=== PATIENT | female | born 1950 | race Caucasian/White ===

== ENCOUNTER 2024-03-14 13:27 | Emergency (ER) | payer MEDICARE, SELFPAY ==
[2024-03-14 13:36] VITALS: BP 128/56; PULSE 66; RESP 18; TEMP 37.2; O2SAT 99
--- NOTE | 2024-03-14 13:44 | ED.URI ---
HPI - URI/Sore Throat General Chief Complaint: Upper Respiratory Infection Stated Complaint: Fever/Body Ache/Headache/Cough Source: patient and RN notes reviewed Mode of arrival: ambulatory Limitations: no limitations History of Present Illness HPI Narrative: 73-year-old female history of hypertension presented for complaint of headache, body aches, sinus pressure/congestion, cough, fever/chills. onset 4 days. Endorses the cough has caused vomiting. Denies sob, wheezing, nausea or diarrhea. Not taking anything. MD elicited complaint: cough Related Data Home Medications Medication Instructions Recorded Confirmed amlodipine 10 mg tablet mg 03/14/24 bisoprolol fumarate 10 mg tablet mg 03/14/24 hydralazine 10 mg tablet mg 03/14/24 hydrochlorothiazide 12.5 mg tablet mg 03/14/24 latanoprost 0.005 % eye drops drp 03/14/24 levothyroxine 50 mcg tablet mcg 03/14/24 pravastatin 20 mg tablet mg 03/14/24 sertraline 25 mg tablet mg 03/14/24 tizanidine 4 mg tablet mg 03/14/24 Allergies Allergy/AdvReac Type Severity Reaction Status Date / Time codeine Allergy Mild Nausea and Unverified 10/21/08 13:47 Vomiting ibuprofen Allergy Mild SWELLING Unverified 10/21/08 13:47 Review of Systems Review of Systems: CONSTITUTIONAL: Endorses malaise, chills, sweats, fever EYES: Denies visual changes, redness, or discharge ENT: Reports rhinorrhea, congestion, sore throat CARDIOVASCULAR: Denies chest pain, palpitations, edema RESPIRATORY: Reports cough, post nasal drainage. Denies dyspnea GASTROINTESTINAL: Denies abdominal pain, nausea, diarrhea SKIN: Denies rash or itching MUSCULOSKELETAL: Endorses myalgia NEUROLOGIC: Endorses headache PMF Past Medical History Medical History (Updated 03/14/24 @ 14:00 by Chanel Herrera, REBECCA) Hypertension Exam Narrative: GENERAL: mildly Ill-appearing, nontoxic no acute distress. EYES: PERRLA, conjunctivae clear ENT: Mucous membranes moist. TMs pearly jean with dull light reflex bilaterally; no tragal tenderness. NECK: Supple. No lymphadenopathy CHEST: Clear to auscultation, breath sounds equal. No wheezing, rhonchi, rales, or stridor. No respiratory distress, speaks in full sentences. HEART: Regular rate and rhythm. No murmur heard. SKIN: Warm, dry, no rash. NEURO: Alert and oriented x3. PSYCH: Normal mood and affect Course Course Emergency Course: Patient is aware of diagnosis, understands and agrees to treatment plan. Anticipatory guidance given. Patient agrees to follow-up as directed and is aware of reasons to seek care at the emergency department. Portions of this record may have been created with voice recognition software Level of Care: Express Care Visit Vital Signs Vital signs: Vital Signs Temperature 99 F 03/14/24 13:36 Pulse Rate 66 03/14/24 13:36 Respiratory Rate 18 03/14/24 13:36 Blood Pressure 128/56 L 03/14/24 13:36 Pulse Oximetry 99 03/14/24 13:36 Oxygen Delivery Room Air 03/14/24 13:36 Temperature 99 F 03/14/24 13:36 Pulse Rate 66 03/14/24 13:36 Respiratory Rate 18 03/14/24 13:36 Blood Pressure 128/56 L 03/14/24 13:36 Pulse Oximetry 99 03/14/24 13:36 Oxygen Delivery Room Air 03/14/24 13:36 reviewed MDM - URI/Sore Throat MDM Narrative Medical decision making narrative: POS covid. Discussed physical exam findings. Reviewed Rx. Advised supportive measures and signs/symptoms to go to the ER. Pt is appropriate for outpt treatment and f/u. Differential Diagnosis Differential diagnosis: Likely upper respiratory infection, sinusitis, viral infection, bronchitis and pharyngitis Discharge Plan Discharge Clinical Impression: COVID-19 Patient Disposition: Home, Self-Care Condition: Stable Instructions: COVID-19 (Coronavirus Disease 2019) (ED) Additional Instructions: Your rapid COVID test was positive today. The following updated recommendations have been made by the CDC and local He
[2024-03-14 14:06] LABS: EDINFLUASCREEN Negative; EDINFLUBSCREEN Negative
== END 2024-03-14 14:15 | disposition home or self-care (01) ==
PROVIDERS: Emergency Provider Nurse Practitioner Family; PCP Internal Medicine
DX: U07.1 COVID-19 (principal); I10 Essential (primary) hypertension
CPT/HCPCS: 87426; 87804; 99213; G0463